=== PATIENT | male | born 2000 | race Caucasian/White ===

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

== ENCOUNTER 2021-11-18 17:01 | Emergency (ER) | payer OTHER ==
[2021-11-18 17:20] VITALS: BP 122/79; PULSE 75; RESP 16; TEMP 98.1
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
== END 2021-11-18 19:13 | disposition home or self-care (01) ==
LOC: EC 17:01
DX: S40.012A Contusion of left shoulder, initial encounter (principal); S39.012A Strain of muscle, fascia and tendon of lower back, initial encounter; F17.209 Nicotine dependence, unspecified, with unspecified nicotine-induced disorders; V89.2XXA Person injured in unspecified motor-vehicle accident, traffic, initial encounter
CPT/HCPCS: 72100; 99284

== ENCOUNTER 2022-01-18 11:02 | Day surgery (SDC) | payer OTHER ==
[2022-01-15 09:16] VITALS: BMI 21.2
[~2022-01-18 11:02] MED LIST: LACTATED RINGERS 1,000 ML IV SCH
[2022-01-18 12:04] VITALS: BP 138/87; PULSE 70; RESP 16; TEMP 98.8
== END 2022-01-18 12:54 | disposition home or self-care (01) ==
LOC: ORWHC2ENDO 11:02
PROVIDERS: ATTEND Surgery
DX: K92.0 Hematemesis (principal); Z53.09 Procedure and treatment not carried out because of other contraindication; F41.0 Panic disorder [episodic paroxysmal anxiety]

== ENCOUNTER 2023-05-09 15:16 | Emergency (ER) | payer OTHER ==
[2023-05-09 15:27] VITALS: RESP 18
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
[2023-05-09] MEDS ORDERED: ACET/COD 300 MG/30 MG STARTER PACK 6 TAB BTL PO STA (17:02)
[2023-05-09 17:21] VITALS: BP 136/86; PULSE 78; TEMP 98.6
== END 2023-05-09 17:12 | disposition home or self-care (01) ==
LOC: EC 15:16
DX: S00.532A Contusion of oral cavity, initial encounter (principal); F17.290 Nicotine dependence, other tobacco product, uncomplicated; Z86.59 Personal history of other mental and behavioral disorders; Y04.0XXA Assault by unarmed brawl or fight, initial encounter
CPT/HCPCS: 70450; 70486; 99285